=== PATIENT | male | born 1955 | race Caucasian/White ===

== ENCOUNTER 2020-01-11 13:32 | Emergency (ER) | payer OTHER ==
[2020-01-11] MEDS ORDERED: ACETAMINOPHEN-CODEINE 300/30MG TAB ONE (14:29)
== END 2020-01-11 15:28 | disposition home or self-care (01) ==
LOC: EDH 13:32
DX: S92.002A Unspecified fracture of left calcaneus, initial encounter for closed fracture (principal); Z88.0 Allergy status to penicillin; Z88.8 Allergy status to other drugs, medicaments and biological substances; Z72.0 Tobacco use; X58.XXXA Exposure to other specified factors, initial encounter; Y93.89 Activity, other specified; Y92.89 Other specified places as the place of occurrence of the external cause; Y99.8 Other external cause status
CPT/HCPCS: 29515; 73590; 73610; 73630

== ENCOUNTER 2021-08-30 08:49 | Day surgery (SDC) | payer OTHER ==
[2021-08-29 09:02] LABS: BASOPHILS % (AUTO) 0.3 % (0.0-5.0); EOSINOPHILS % (AUTO) 0.9 % (0.0-8.0); HEMATOCRIT 40.7 % (42-54); MEAN CORPUSCULAR HEMOGLOBIN 32.3 pg (27.0-33.0); MEAN CORPUSCULAR HGB CONC 33.4 g/dL (32.0-36.0); MEAN CORPUSCULAR VOLUME 96.7 fL (79-99); NEUTROPHILS % (AUTO) 62.6 % (40.0-77.0); PLATELET COUNT (AUTO) 253 K/uL (130-400); RED BLOOD CELL COUNT(AUTO) 4.21 MIL/uL (4.50-6.20); RED CELL DISTRIBUTION WIDTH 13.9 % (11.0-15.5); WHITE BLOOD COUNT (AUTO) 8.9 K/uL (4.8-10.8)
[2021-08-29 09:08] LABS: CREATININE 0.8 mg/dL (0.5-1.5)
[2021-08-29 10:58] VITALS: BP 124/58
[~2021-08-30] VITALS: Ht 182.9 cm; Wt 69.9 kg
[2021-08-30] VITALS (12 sets, daily range): BP systolic 108–129; BP diastolic 50–73
[~2021-08-30 08:49] MED LIST: ALBU8.5H8 IH
[2021-08-30] MEDS ORDERED: SUCCINYLCHOLINE CHLORIDE 20 MG/ML 10 ML VIAL ONE (09:30)
[2021-08-30] MEDS ORDERED: MIDAZOLAM HCL 1 MG/ML 2ML VIAL ONE (09:30)
[2021-08-30] MEDS ORDERED: ONDANSETRON 4MG INJ ONE (09:30)
[2021-08-30] MEDS ORDERED: DEXAMETHASONE SOD PHOSPHATE 10MG/ML 1ML VIAL ONE (09:30)
[2021-08-30] MEDS ORDERED: LIDOCAINE PF 100MG/5ML (2%) SYRINGE 5ML ONE (09:30)
[2021-08-30] MEDS ORDERED: GLYCOPYRROLATE 1 MG/5 ML SYRINGE ONE (09:31)
[2021-08-30] MEDS ORDERED: PROPOFOL 10 MG/ML 20ML VIAL IV ONE (09:31)
[2021-08-30] MEDS ORDERED: ROCURONIUM 10MG/1ML SYR 10 MG/ML ML ONE (09:31)
[2021-08-30] MEDS ORDERED: FENTANYL CITRATE PF 50 MCG/1 ML 2ML VIAL ONE (09:31)
[2021-08-30] MEDS ORDERED: NEOSTIGMINE 5MG/5ML SYR IV ONE (09:31)
[2021-08-30] MEDS ORDERED: LACTATED RINGERS 1000ML 1,000 ML IV ONE (09:33)
[2021-08-30] MEDS ORDERED: CEFAZOLIN SODIUM 1 GM VIAL ONE (09:33)
[2021-08-30] MEDS ORDERED: CLINDAMYCIN IVPB 900MG/50ML 50 ML IV ONE (10:04)
[2021-08-30] MEDS ORDERED: BUPIVACAINE/PF 0.5% 30ML VIAL ONE (10:17)
[2021-08-30] MEDS ORDERED: CLINDAMYCIN 900MG/6ML INJ IJ ONE (11:38)
[2021-08-30] MEDS ORDERED: BUPIVACAINE/EPI/PF 0.5% 30ML VIAL IJ ONE (11:40)
== END 2021-08-30 14:00 | disposition home or self-care (01) ==
LOC: DAH 08:49
PROVIDERS: ATTEND Surgery
DX: L72.3 Sebaceous cyst (principal); L72.0 Epidermal cyst; J43.9 Emphysema, unspecified; F17.210 Nicotine dependence, cigarettes, uncomplicated; Z79.899 Other long term (current) drug therapy; Z79.82 Long term (current) use of aspirin; Z98.890 Other specified postprocedural states; Z88.0 Allergy status to penicillin; Z88.8 Allergy status to other drugs, medicaments and biological substances
CPT/HCPCS: 21931; 36415; 80048; 85025; 87635; A4215; A4221; A4222; A4223 ×2; A4452; A4663; A6260; A6402; C9803; J0330; J1100; J2001; J2250; J2405; J2704; J2710; J3010; J3490 ×3; J7120; J0690